=== PATIENT | male | born 1945 | race Caucasian/White ===

== ENCOUNTER 2019-07-17 09:51 | Inpatient (IN) | payer MEDICARE, OTHER ==
[~2019-07-17] VITALS: Ht 172.7 cm; Wt 85.9 kg
--- NOTE | 2019-07-17 10:15 | NUR ---
PTS HR NOTED TO DROP DOWN TO 40'S WITH OCC PVCS. AND RETURNS TO 80S. EKG REQUESTED AND COMPLETED BY GALINDO BELTRAN
[2019-07-17] MEDS ORDERED: normal saline 1000ML IV soln IVB ONE ×3 (10:35→14:20)
[2019-07-17] MEDS ORDERED: ondansetron/PF 4mg/2ml inj IV ONE ×2 (10:35→14:20)
[2019-07-17 10:41] LABS: BASOPHILS % (AUTO) 0.2 % (0-1); EOSINOPHILS % (AUTO) 0.3 % (0-6); HEMATOCRIT 36.2 % (42.0-52.0); HEMOGLOBIN 11.9 g/dl (14.0-17.9); LYMPHOCYTES # (AUTO) 0.7 X10'3 (1.1-4.8); LYMPHOCYTES % (AUTO) 5.6 % (21-51); MEAN CORPUSCULAR HEMOGLOBIN 27.2 PG (27.0-31.0); MEAN CORPUSCULAR HGB CONC 32.9 g/dL (33.0-36.5); MEAN CORPUSCULAR VOLUME 82.7 FL (78-98); MEAN PLATELET VOLUME 7.9 FL (7.4-10.4); MONOCYTES # (AUTO) 0.8 X10'3 (0-0.9); MONOCYTES % (AUTO) 6.5 % (2-12); NEUTROPHILS # (AUTO) 11.3 X10'3 (1.8-7.7); NEUTROPHILS % (AUTO) 87.4 % (42-75); PLATELET COUNT 342 X10'3 (140-440); RED BLOOD COUNT 4.38 X10'6 (4.70-6.10); RED CELL DISTRIBUTION WIDTH 13.9 % (11.5-14.5)
--- NOTE | 2019-07-17 10:46 | NUR ---
PT HAD A BAG OF EMISIS FROM EMS. IT WAS NOTED TO BE RED AND CHUNKY. PT STATES HE HAD RED JELLO AND PEACHES LATE LAST NOC.
[2019-07-17 10:49] LABS: ALANINE AMINOTRANSFERASE 11 U/L (12-78); ALBUMIN 3.8 G/DL (3.4-5.0); ALBUMIN/GLOBULIN RATIO 1.1 (1.1-1.5); ALKALINE PHOSPHATASE 69 IU/L (46-116); ANION GAP 12 (8-16); ASPARTATE AMINO TRANSFERASE 15 U/L (10-37); BILIRUBIN,TOTAL 0.7 MG/DL (0.1-1.0); BLOOD UREA NITROGEN 16 MG/DL (7-18); CALCIUM 9.3 MG/DL (8.5-10.1); CHLORIDE 103 MMOL/L (99-107); CREATININE 1.23 MG/DL (0.60-1.10); GLUCOSE 154 MG/DL (70-104); POTASSIUM 4.2 MMOL/L (3.5-5.1); SODIUM 140 MMOL/L (135-145); TOTAL CARBON DIOXIDE 24.9 MMOL/L (24-32); TOTAL PROTEIN 7.2 G/DL (6.4-8.2); eGFR 58 ML/MIN
[2019-07-17 10:56] LABS: LIPASE 122 U/L (73-393)
--- NOTE | 2019-07-17 11:58 | NUR ---
pt states he is not able to void at this time. 2nd L ns started will recheck
--- NOTE | 2019-07-17 12:10 | NUR ---
PT STATES THE PAIN AND "SICKNESS" IS BACK. NOTIFIED DR BRENTON TABARES FOR RYAN
[2019-07-17] MEDS ORDERED: metoclopramide 5 mg/ml inj IV ONE (12:15)
--- NOTE | 2019-07-17 12:23 | NUR ---
REGLAN GIVEN PER ORDER. INFORMED PT AND DR FARRIS IS WAITING ON URINE SAMPLE.
--- NOTE | 2019-07-17 12:47 | NUR ---
Lunch relief for primary nurse. Pt reminded we need a urine specimen. Pt reports significant amount of abd discomfort and nausea. Pt's has stable vital signs.
--- NOTE | 2019-07-17 13:20 | NUR ---
Pt's urine obtained via straight cath because he reports he is unable to attempt to void and provide a specimen at this time. Pt tolerated well. Pt continues to have discomfort and moaning due to pain and nausea.
[2019-07-17 13:46] LABS: CLARITY,URINE SLIGHTLY CLOUDY (Clear); COLOR,URINE YELLOW (Yellow); GLUCOSE, URINE NEGATIVE (Neg); KETONES,URINE 15 mg/dl (Neg); LEUKOCYTE ESTERASE ,URINE NEGATIVE (Neg); NITRITES, URINE NEGATIVE (Neg); OCCULT BLOOD,URINE NEGATIVE (Neg); PROTEIN,URINE NEGATIVE (Neg); UA COLLECTION TYPE STRAIGHT CATH
[2019-07-17 13:56] LABS: MUCUS STRANDS FEW /LPF (Neg)
[2019-07-17 13:57] LABS: HYALINE CASTS 0-3 /LPF (NEGATIVE); SQUAMOUS EPITHELIAL CELL,UR FEW /LPF (FEW)
[2019-07-17 14:02] LABS: BACTERIA,URINE FEW /HPF (Neg); RBC,URINE 0-2 /HPF (0-2); URIC ACID CRYSTALS 4+ /HPF (NEGATIVE); WBC,URINE 0-4 /HPF (0-4)
[2019-07-17] MEDS ORDERED: potassium Cl 20 mEq SR tablet PO PRN ×2 (14:30)
[2019-07-17] MEDS ORDERED: ondansetron/PF 4mg/2ml inj IV PRN (14:30)
[2019-07-17] MEDS ORDERED: mag hydrox/Alum hydrox/simeth 30ml oral suspension PO PRN (14:30)
[2019-07-17] MEDS ORDERED: diphenhydrAMINE 50 mg/ml inj IV PRN (14:30)
[2019-07-17] MEDS ORDERED: magnesium hydroxide 30ml (MOM) UD suspension PO PRN (14:30)
[2019-07-17] MEDS ORDERED: acetaminophen 650mg rectal suppository RC PRN (14:30)
[2019-07-17] MEDS ORDERED: acetaminophen 325mg tablet PO PRN ×2 (14:30)
[2019-07-17] MEDS ORDERED: metoclopramide 5 mg/ml inj IV PRN (14:30)
[2019-07-17] MEDS ORDERED: HYDROcodone/acetaminophen 10/325mg tab PO PRN (14:30)
[2019-07-17] MEDS ORDERED: diphenhydrAMINE 25mg capsule PO PRN (14:30)
[2019-07-17] MEDS ORDERED: HYDROmorphone inj. 0.5 MG/0.5 ML DISP.SYRIN IV PRN (14:30)
[2019-07-17] MEDS ORDERED: magnesium 4gm in 100ml NS 100 ML IV PRN (14:30)
[2019-07-17] MEDS ORDERED: magnesium 2GM in 50ml NS 50 ML IV PRN (14:30)
[2019-07-17] MEDS ORDERED: potassium CL 10mEq/100ml bag 100 ML IV PRN ×2 (14:30)
[2019-07-17] MEDS ORDERED: magnesium Cl slow-release 64mg tablet PO PRN (14:30)
[2019-07-17] MEDS ORDERED: HYDROcodone/acetaminophen 5mg/325mg tablet PO PRN (14:30)
[2019-07-17] MEDS: K and/or MAG REPLACEMENT MC SCH (14:30)
[2019-07-17] MEDS ORDERED: bisacodyl 10mg suppository rectal RC PRN (14:30)
[2019-07-17] MEDS: ringers solution, lacted 1,000 ML IV SCH (14:46)
--- NOTE | 2019-07-17 15:00 | NUR ---
DR LEVINE AND BRENTON AT FOR JOINT ASSESSMENT
--- NOTE | 2019-07-17 15:11 | NUR ---
[facility] (CELL) [phone] (HOME) [phone]
[2019-07-17 15:12] LABS: PHOSPHORUS 1.9 MG/DL (2.3-4.5)
[2019-07-17] MEDS ORDERED: NO HOME MEDS (15:16)
--- NOTE | 2019-07-17 15:22 | NUR ---
medical records release faxed to [facility]
[2019-07-17] MEDS: piperacillin/tazo 3.375gm/50ml 50 ML IV SCH ×2 (15:41→16:00)
--- NOTE | 2019-07-17 15:46 | NUR ---
STARTED ZOSYN, CHECKED COMPATABILITY WITH LACTATED RINGERS WITH [facility] PHARMACIST WHO ADVISED THAT THEY ARE COMPATIBLE
[2019-07-17 16:01] LABS: PARTIAL THROMBOPLASTIN TIME 28 SECONDS (22-32)
--- NOTE | 2019-07-17 16:31 | NUR ---
Patient in room ED 4. I have received report from REBEKAH Luna and had the opportunity to ask questions and assume patient care.
--- NOTE | 2019-07-17 16:45 | NUR ---
Patient in room [facility]. I have received report from Kourtney WELCH and had the opportunity to ask questions and assume patient care.
[2019-07-17 16:55] VITALS: BP 115/69
--- NOTE | 2019-07-17 16:59 | NUR ---
1600 zosyn was not administered because too close to previous dosing. Patient will continue with the normal dosing schedule at 0000 07/18. Pharmacy notified and advised action.
[2019-07-17] MEDS: proCHLORperazine 10 MG/2 ml inj IV PRN (17:47)
[2019-07-17 18:00] VITALS: BP 125/74
--- NOTE | 2019-07-17 18:20 | NUR ---
Problems reprioritized. Patient report given, questions answered & plan of care reviewed with Niurka Gayle RN.
--- NOTE | 2019-07-17 18:33 | NUR ---
Patient in room [facility]. I have received report from REBEKAH Abel and had the opportunity to ask questions and assume patient care. Addendum: 07/17/19 at 1833 by Clemencia Russell RN Amended: Links added.
[2019-07-17] MEDS: HYDROmorphone 1 mg/ml syringe IV PRN (20:17)
[2019-07-17] MEDS: diatr meglu/diatrizoate 30ml oral sol.-(3 dose) bottle PO SCH (20:18)
[2019-07-17] MEDS ORDERED: temazepam 15mg capsule PO PRN (21:00)
[2019-07-18] VITALS: BP 108/65
[2019-07-18] MEDS: piperacillin/tazo 3.375gm/50ml 50 ML IV SCH ×3 (00:24→15:54)
[2019-07-18] MEDS: ringers solution, lacted 1,000 ML IV SCH ×4 (00:24→20:54)
[2019-07-18] MEDS: proCHLORperazine 10 MG/2 ml inj IV PRN (00:30)
[2019-07-18] MEDS: HYDROmorphone 1 mg/ml syringe IV PRN (00:33)
[2019-07-18 05:16] LABS: BASOPHILS % (AUTO) 0.1 % (0-1); EOSINOPHILS % (AUTO) 0.2 % (0-6); HEMATOCRIT 29.5 % (42.0-52.0); HEMOGLOBIN 9.8 g/dl (14.0-17.9); LYMPHOCYTES # (AUTO) 0.6 X10'3 (1.1-4.8); LYMPHOCYTES % (AUTO) 8.7 % (21-51); MEAN CORPUSCULAR HEMOGLOBIN 27.6 PG (27.0-31.0); MEAN CORPUSCULAR HGB CONC 33.1 g/dL (33.0-36.5); MEAN CORPUSCULAR VOLUME 83.3 FL (78-98); MEAN PLATELET VOLUME 8.5 FL (7.4-10.4); MONOCYTES # (AUTO) 1.1 X10'3 (0-0.9); MONOCYTES % (AUTO) 17.2 % (2-12); NEUTROPHILS # (AUTO) 4.8 X10'3 (1.8-7.7); NEUTROPHILS % (AUTO) 73.8 % (42-75); PLATELET COUNT 256 X10'3 (140-440); RED BLOOD COUNT 3.55 X10'6 (4.70-6.10); RED CELL DISTRIBUTION WIDTH 13.8 % (11.5-14.5); WHITE BLOOD COUNT 6.5 X10'3 (4.5-11.0)
[2019-07-18 05:38] LABS: ALANINE AMINOTRANSFERASE 9 U/L (12-78); ALBUMIN 2.7 G/DL (3.4-5.0); ALBUMIN/GLOBULIN RATIO 0.9 (1.1-1.5); ALKALINE PHOSPHATASE 55 IU/L (46-116); ANION GAP 9 (8-16); ASPARTATE AMINO TRANSFERASE 18 U/L (10-37); BILIRUBIN,TOTAL 0.8 MG/DL (0.1-1.0); BLOOD UREA NITROGEN 21 MG/DL (7-18); BUN/CREATININE RATIO 12.7 (5.4-32.0); CALCIUM 8.2 MG/DL (8.5-10.1); CHLORIDE 108 MMOL/L (99-107); CREATININE 1.66 MG/DL (0.60-1.10); GLUCOSE 133 MG/DL (70-104); PHOSPHORUS 3.1 MG/DL (2.3-4.5); POTASSIUM 3.5 MMOL/L (3.5-5.1); SODIUM 142 MMOL/L (135-145); TOTAL CARBON DIOXIDE 24.8 MMOL/L (24-32); TOTAL PROTEIN 5.7 G/DL (6.4-8.2); eGFR 41 ML/MIN
--- NOTE | 2019-07-18 06:45 | NUR ---
Problems reprioritized. Patient report given, questions answered & plan of care reviewed with REBEKAH Coles. Addendum: 07/18/19 at 0645 by Clemencia Russell RN Amended: Links added.
[2019-07-18 06:55] LABS: ANISOCYTOSIS 1+; MICROCYTOSIS 1+; PLATELET ESTIMATE NORMAL; POIKILOCYTOSIS FEW; TOTAL CELLS COUNTED 100
[2019-07-18 08:00] VITALS: BP 111/65
[2019-07-18] MEDS: K and/or MAG REPLACEMENT MC SCH (08:00)
[2019-07-18] MEDS: diatr meglu/diatrizoate 30ml oral sol.-(3 dose) bottle PO SCH ×2 (09:19→10:50)
[2019-07-18] MEDS: enoxaparin 40mg/0.4ml syringe SUBCUT SCH (09:20)
[2019-07-18] MEDS ORDERED: iohexol 300mg/ml 100ml inj. ONE (10:56)
[2019-07-18 18:00] VITALS: BP 127/68
--- NOTE | 2019-07-18 18:35 | NUR ---
Patient in room [facility]. I have received report from REBEKAH Villafana and had the opportunity to ask questions and assume patient care. Addendum: 07/18/19 at 1835 by Clemencia Russell RN Amended: Links added.
--- NOTE | 2019-07-18 18:39 | NUR ---
Problems reprioritized. Patient report given, questions answered & plan of care reviewed with Niurka Gayle RN.
[2019-07-18] MEDS: lactobacillus rhamnosus 10,000 MMU CELLS/CAPSULE PO SCH (20:12)
[2019-07-19] MEDS: piperacillin/tazo 3.375gm/50ml 50 ML IV SCH ×2 (00:31→10:10)
[2019-07-19 00:51] VITALS: BP 120/71
[2019-07-19] MEDS: ringers solution, lacted 1,000 ML IV SCH (04:50)
[2019-07-19 05:27] LABS: BASOPHILS % (AUTO) 0.5 % (0-1); EOSINOPHILS # (AUTO) 0.1 X10'3 (0-0.9); EOSINOPHILS % (AUTO) 2.5 % (0-6); HEMATOCRIT 24.3 % (42.0-52.0); HEMOGLOBIN 8.2 g/dl (14.0-17.9); LYMPHOCYTES # (AUTO) 0.8 X10'3 (1.1-4.8); LYMPHOCYTES % (AUTO) 14.7 % (21-51); MEAN CORPUSCULAR HEMOGLOBIN 27.8 PG (27.0-31.0); MEAN CORPUSCULAR HGB CONC 33.7 g/dL (33.0-36.5); MEAN CORPUSCULAR VOLUME 82.4 FL (78-98); MEAN PLATELET VOLUME 8.2 FL (7.4-10.4); MONOCYTES # (AUTO) 0.7 X10'3 (0-0.9); MONOCYTES % (AUTO) 12.6 % (2-12); NEUTROPHILS # (AUTO) 3.9 X10'3 (1.8-7.7); NEUTROPHILS % (AUTO) 69.7 % (42-75); PLATELET COUNT 197 X10'3 (140-440); RED BLOOD COUNT 2.95 X10'6 (4.70-6.10); RED CELL DISTRIBUTION WIDTH 13.5 % (11.5-14.5); WHITE BLOOD COUNT 5.6 X10'3 (4.5-11.0)
[2019-07-19 05:34] LABS: ALANINE AMINOTRANSFERASE 9 U/L (12-78); ALBUMIN 2.5 G/DL (3.4-5.0); ALKALINE PHOSPHATASE 45 IU/L (46-116); ANION GAP 7 (8-16); ASPARTATE AMINO TRANSFERASE 15 U/L (10-37); BILIRUBIN,TOTAL 0.4 MG/DL (0.1-1.0); BLOOD UREA NITROGEN 13 MG/DL (7-18); BUN/CREATININE RATIO 9.1 (5.4-32.0); CALCIUM 7.9 MG/DL (8.5-10.1); CHLORIDE 109 MMOL/L (99-107); CREATININE 1.43 MG/DL (0.60-1.10); GLUCOSE 98 MG/DL (70-104); PHOSPHORUS 1.9 MG/DL (2.3-4.5); POTASSIUM 3.4 MMOL/L (3.5-5.1); SODIUM 144 MMOL/L (135-145); TOTAL PROTEIN 4.9 G/DL (6.4-8.2); eGFR 48 ML/MIN
--- NOTE | 2019-07-19 06:34 | NUR ---
Problems reprioritized. Patient report given, questions answered & plan of care reviewed with REBEKAH Chavez.
[2019-07-19 07:00] VITALS: BP 108/53
[2019-07-19] MEDS: K and/or MAG REPLACEMENT MC SCH (08:00)
[2019-07-19] MEDS: lactobacillus rhamnosus 10,000 MMU CELLS/CAPSULE PO SCH (10:09)
[2019-07-19] MEDS: enoxaparin 40mg/0.4ml syringe SUBCUT SCH (10:14)
[2019-07-19] MEDS ORDERED: Neutra Phos packet PO SCH (10:40)
[2019-07-19 11:00] VITALS: BP 140/80
--- NOTE | 2019-07-19 12:22 | NUR ---
DISCHARGE NOTE: PATIENT STABLE AND APPROPRIATE FOR DISCHARGE, IV TAKEN OUT, EDUCATION GIVEN, ALL BELONGINGS SENT WITH PATIENT, PATIENT TAKEN BY WHEEL CHAIR TO AN AWAITING CAR WHERE WILL TAKEN HOME
== END 2019-07-19 12:22 | disposition home or self-care (01) | DRG 389 ==
LOC: ER 09:52 → ED HOLD 14:30 → SUR 3N 16:40
PROVIDERS: ADMIT Family Medicine; ATTEND Family Medicine
PROC: BW211ZZ Computerized Tomography (CT Scan) of Abdomen and Pelvis using Low Osmolar Contrast (ICD-10-PCS; principal; 2019-07-18)
DX: K56.7 Ileus, unspecified (principal); N17.9 Acute kidney failure, unspecified; K40.90 Unilateral inguinal hernia, without obstruction or gangrene, not specified as recurrent; D64.9 Anemia, unspecified; D72.829 Elevated white blood cell count, unspecified; E83.39 Other disorders of phosphorus metabolism; E87.6 Hypokalemia; K42.9 Umbilical hernia without obstruction or gangrene; K43.9 Ventral hernia without obstruction or gangrene; K57.90 Diverticulosis of intestine, part unspecified, without perforation or abscess without bleeding; N18.9 Chronic kidney disease, unspecified; Z87.891 Personal history of nicotine dependence; Z90.49 Acquired absence of other specified parts of digestive tract
CPT/HCPCS: 36415; 71045; 74176; 74177; 80053; 81001; 83605; 83690; 83735; 84100; 84484; 85025; 85610; 85730; 87040; 87081; 93005; 96361; 96374; 96375; 99285; G0378; J0780; J1170; J1650; J2405; J2543; J2765; J7120; Q9963; Q9967

== ENCOUNTER 2019-12-10 07:38 | Inpatient (IN) | payer OTHER ==
[~2019-12-10] VITALS: Ht 172.7 cm; Wt 75.6 kg
[2019-12-10] VITALS (22 sets, daily range): BP systolic 65–145; BP diastolic 57–99
[~2019-12-10 07:38] MED LIST: SENN1TAB61 PO; ceFOXitin sod/dextrose 2g/50ml 50 ML IV ONE; famotidine 20mg tablet PO ONE; ringers solution, lacted 1,000 ML IV SCH
[2019-12-10 09:25] LABS: BASOPHILS % (AUTO) 0.6 % (0-1); EOSINOPHILS # (AUTO) 0.1 X10'3 (0-0.9); EOSINOPHILS % (AUTO) 1.6 % (0-6); LYMPHOCYTES # (AUTO) 0.7 X10'3 (1.1-4.8); LYMPHOCYTES % (AUTO) 10.7 % (21-51); MEAN CORPUSCULAR HEMOGLOBIN 21.1 PG (27.0-31.0); MEAN CORPUSCULAR VOLUME 70.3 FL (78-98); MEAN PLATELET VOLUME 7.7 FL (7.4-10.4); MONOCYTES # (AUTO) 0.5 X10'3 (0-0.9); MONOCYTES % (AUTO) 7.7 % (2-12); NEUTROPHILS % (AUTO) 79.4 % (42-75); PRE OP HEMATOCRIT 27.6 % (42.0-52.0); PRE OP PLATELET COUNT 355 X10'3 (140-440); RED BLOOD COUNT 3.92 X10'6 (4.70-6.10); RED CELL DISTRIBUTION WIDTH 19.2 % (11.5-14.5)
[2019-12-10 09:28] LABS: PRE OP HEMOGLOBIN 8.3 g/dL (14.0-17.9)
[2019-12-10 09:35] LABS: PRE OP INR 1.1 INR; PRE OP PROTIME 10.9 SECONDS (9.0-12.0)
[2019-12-10 09:37] LABS: ALBUMIN 3.2 G/DL (3.4-5.0); ALKALINE PHOSPHATASE 74 IU/L (46-116); BLOOD UREA NITROGEN 16 MG/DL (7-18); BUN/CREATININE RATIO 12.1 (5.4-32.0); CALCIUM 8.4 MG/DL (8.5-10.1); CHLORIDE 107 MMOL/L (99-107); CREATININE 1.32 MG/DL (0.60-1.10); PRE OP ALT 6 U/L (30-65); PRE OP ANION GAP 9 (8-16); PRE OP AST 17 U/L (10-37); PRE OP BILIRUB, TOTAL 0.6 MG/DL (0.0-1.0); PRE OP GLUCOSE 101 MG/DL (70-104); PRE OP POTASSIUM 3.9 MMOL/L (3.4-5.1); PRE OP SODIUM 143 MMOL/L (135-145); TOTAL CARBON DIOXIDE 26.7 MMOL/L (24-32); TOTAL PROTEIN 6.4 G/DL (6.4-8.2); eGFR 53 ML/MIN
[2019-12-10 09:57] LABS: PLATELET ESTIMATE NORMAL
[2019-12-10 09:58] LABS: ANISOCYTOSIS 2+; BURR CELLS FEW; ELLIPTOCYTES FEW; MICROCYTOSIS 1+; SCHISTOCYTES FEW
[2019-12-10] MEDS ORDERED: sevoflurane 250ml liquid IH ONE (11:19)
[2019-12-10] MEDS ORDERED: ondansetron/PF 4mg/2ml inj ONE (11:19)
[2019-12-10] MEDS ORDERED: fentaNYL/PF 50MCG/1 ML 2ML syringe ONE ×2 (11:27→11:52)
[2019-12-10] MEDS ORDERED: naloxone 0.4 mg/ml inj IV PRN (12:55)
[2019-12-10] MEDS ORDERED: ondansetron/PF 4mg/2ml inj IV PRN ×2 (12:55→13:15)
[2019-12-10] MEDS ORDERED: CADD PCA waste documentation MC PRN (12:55)
--- NOTE | 2019-12-10 13:10 | NUR ---
Received from OR via BED, accompanied by Anesthesiologist DR MARAVILLA-- and report given by Anesthesiolgist. PATIENT A&OX4, DENIES PAIN, V/S WNL, NEUROVASCULAR CHECKS INTACT, 20G PIV LUE, SCD ON, F/C DRAINING CLEAR YELLOW URINE. ISLAND DRESSING TO ABDOMEN CDI. HGB 9.9 HCT 29 FROM ISTAT
[2019-12-10] MEDS ORDERED: ringers solution, lacted 1,000 ML IV SCH (13:14)
[2019-12-10] MEDS ORDERED: morphine 2 MG/ML inj. syringe IV PRN (13:15)
[2019-12-10] MEDS ORDERED: HYDROmorphone inj. 0.5 MG/0.5 ML DISP.SYRIN IV PRN (13:15)
[2019-12-10] MEDS ORDERED: rocuronium 10mg/ml inj IV ONE (13:35)
[2019-12-10] MEDS ORDERED: LIDOcaine 2% (20mg/ml) 5ml vial ONE (13:35)
[2019-12-10] MEDS ORDERED: neostigmine methylsulfate 1 MG/ML 10ml vial ONE (13:35)
[2019-12-10] MEDS ORDERED: propofol inj 20 ML IV ONE (13:35)
[2019-12-10] MEDS ORDERED: phenylephrine 10mg/ml inj. ONE (13:35)
[2019-12-10] MEDS ORDERED: glycopyrrolate 0.2mg/ml inj ONE (13:35)
[2019-12-10] MEDS: HYDROmorphone/NS 1 mg/ml CADD 50 ML IV SCH ×6 (13:43→23:00)
--- NOTE | 2019-12-10 14:50 | NUR ---
PATIENT A&OX4, DENIES PAIN, V/S WNL, NEUROVASCULAR CHECKS INTACT, 18 G PIV LUE, SCD ON, F/C DRAINING CLEAR YELLOW URINE. ISLAND DRESSING TO ABDOMEN CDI. PATIENT TAKEN TO 3024A WITH ALL BELONGINGS AND HOOKED UP TO MONITORS IN ROOM AND REPORT GIVEN TO RN WHO HAS TAKEN OVER PATIENT CARE.
--- NOTE | 2019-12-10 15:11 | NUR ---
RECEIVED PATIENT TO ROOM 346A. PATIENT IS SLEEPING BUT IS EASILY AWAKENS TO VOICE AND IS ORIENTED X4. MIDLINE DRESSING TO ABD CDI. OWEN CATHETER DRAINING TO GRAVITY WITH CLEAR, YELLOW URINE. EDUCATED PATIENT USE OF CADD PUMP. ORIENTED PATIENT TO ROOM AND CALL LIGHT. CALL LIGHT IN WITHIN PATIENT'S REACH. BED IS LOW AND LOCKED. POST OP VITALS INITIATED, VSS.
[2019-12-10] MEDS: Potassium Cl inj 20 MEQ in ringers solution, lacted 1,000 ML IV SCH (18:02)
--- NOTE | 2019-12-10 18:31 | NUR ---
Problems reprioritized. Patient report given, questions answered & plan of care reviewed with LINH RN.
[2019-12-11] VITALS: BP 112/65
[2019-12-11] MEDS: HYDROmorphone/NS 1 mg/ml CADD 50 ML IV SCH ×12 (01:00→23:00)
[2019-12-11] MEDS: Potassium Cl inj 20 MEQ in ringers solution, lacted 1,000 ML IV SCH ×4 (02:38→21:37)
[2019-12-11 04:15] VITALS: BP 117/65
[2019-12-11 05:46] LABS: BASOPHILS % (AUTO) 0.2 % (0-1); EOSINOPHILS % (AUTO) 0 % (0-6); HEMATOCRIT 32.5 % (42.0-52.0); HEMOGLOBIN 10.5 g/dl (14.0-17.9); LYMPHOCYTES # (AUTO) 0.9 X10'3 (1.1-4.8); LYMPHOCYTES % (AUTO) 8.6 % (21-51); MEAN CORPUSCULAR HEMOGLOBIN 24.9 PG (27.0-31.0); MEAN CORPUSCULAR HGB CONC 32.4 g/dL (33.0-36.5); MEAN CORPUSCULAR VOLUME 76.9 FL (78-98); MONOCYTES # (AUTO) 0.9 X10'3 (0-0.9); MONOCYTES % (AUTO) 8.7 % (2-12); NEUTROPHILS # (AUTO) 8.8 X10'3 (1.8-7.7); NEUTROPHILS % (AUTO) 82.5 % (42-75); PLATELET COUNT 284 X10'3 (140-440); RED BLOOD COUNT 4.23 X10'6 (4.70-6.10); RED CELL DISTRIBUTION WIDTH 23.2 % (11.5-14.5); WHITE BLOOD COUNT 10.7 X10'3 (4.5-11.0)
[2019-12-11 06:02] LABS: ALBUMIN 2.5 G/DL (3.4-5.0); ANION GAP 7 (8-16); BLOOD UREA NITROGEN 14 MG/DL (7-18); BUN/CREATININE RATIO 10.6 (5.4-32.0); CALCIUM 7.7 MG/DL (8.5-10.1); CHLORIDE 110 MMOL/L (99-107); CREATININE 1.32 MG/DL (0.60-1.10); GLUCOSE 124 MG/DL (70-104); POTASSIUM 4.1 MMOL/L (3.5-5.1); SODIUM 143 MMOL/L (135-145); TOTAL CARBON DIOXIDE 26.4 MMOL/L (24-32); eGFR 53 ML/MIN
--- NOTE | 2019-12-11 06:32 | NUR ---
Patient in room [facility]. I have received report from REBEKAH MELTON and had the opportunity to ask questions and assume patient care.
[2019-12-11 07:04] LABS: BURR CELLS FEW; ELLIPTOCYTES FEW; MICROCYTOSIS 1+; PLATELET ESTIMATE NORMAL; SCHISTOCYTES FEW
[2019-12-11] MEDS: sennosides/docusate sodium tablet PO SCH (07:15)
[2019-12-11 08:00] VITALS: BP 122/67
[2019-12-11 11:02] VITALS: BP 117/65
[2019-12-11] MEDS: enoxaparin 40mg/0.4ml syringe SUBCUT SCH (14:06)
[2019-12-11 18:15] VITALS: BP 142/71
--- NOTE | 2019-12-11 18:57 | NUR ---
Patient in room [facility] 340. I have received report from REBEKAH Thakkar and had the opportunity to ask questions and assume patient care.
--- NOTE | 2019-12-11 19:01 | NUR ---
Problems reprioritized. Patient report given, questions answered & plan of care reviewed with ELIZA, RN.
[2019-12-12 00:15] VITALS: BP 152/82
[2019-12-12] MEDS: HYDROmorphone/NS 1 mg/ml CADD 50 ML IV SCH ×12 (01:00→22:59)
[2019-12-12 06:16] LABS: BASOPHILS % (AUTO) 0.5 % (0-1); EOSINOPHILS # (AUTO) 0.1 X10'3 (0-0.9); EOSINOPHILS % (AUTO) 0.7 % (0-6); HEMATOCRIT 29.9 % (42.0-52.0); HEMOGLOBIN 9.7 g/dl (14.0-17.9); LYMPHOCYTES # (AUTO) 0.8 X10'3 (1.1-4.8); LYMPHOCYTES % (AUTO) 8.2 % (21-51); MEAN CORPUSCULAR HEMOGLOBIN 24.9 PG (27.0-31.0); MEAN CORPUSCULAR HGB CONC 32.4 g/dL (33.0-36.5); MEAN PLATELET VOLUME 7.8 FL (7.4-10.4); NEUTROPHILS # (AUTO) 7.3 X10'3 (1.8-7.7); NEUTROPHILS % (AUTO) 79.6 % (42-75); PLATELET COUNT 277 X10'3 (140-440); RED BLOOD COUNT 3.89 X10'6 (4.70-6.10); RED CELL DISTRIBUTION WIDTH 23.9 % (11.5-14.5); WHITE BLOOD COUNT 9.2 X10'3 (4.5-11.0)
--- NOTE | 2019-12-12 06:27 | NUR ---
Problems reprioritized. Patient report given, questions answered & plan of care reviewed with REBEKAH Abrams.
[2019-12-12 06:28] LABS: ALBUMIN 2.4 G/DL (3.4-5.0); ANION GAP 5 (8-16); BLOOD UREA NITROGEN 11 MG/DL (7-18); BUN/CREATININE RATIO 9.6 (5.4-32.0); CALCIUM 8.1 MG/DL (8.5-10.1); CHLORIDE 107 MMOL/L (99-107); CREATININE 1.14 MG/DL (0.60-1.10); GLUCOSE 103 MG/DL (70-104); POTASSIUM 3.8 MMOL/L (3.5-5.1); SODIUM 141 MMOL/L (135-145); TOTAL CARBON DIOXIDE 28.7 MMOL/L (24-32); eGFR 63 ML/MIN
[2019-12-12 07:30] VITALS: BP 131/81
[2019-12-12] MEDS ORDERED: enoxaparin 40mg/0.4ml syringe SUBCUT SCH (08:00)
[2019-12-12] MEDS: enoxaparin 40mg/0.4ml syringe SUBCUT SCH (09:30)
[2019-12-12] MEDS: sennosides/docusate sodium tablet PO SCH (09:30)
[2019-12-12] MEDS: Potassium Cl inj 20 MEQ in ringers solution, lacted 1,000 ML IV SCH ×2 (11:24→22:11)
[2019-12-12 12:19] VITALS: BP 134/75
[2019-12-12 18:15] VITALS: BP 154/84
--- NOTE | 2019-12-12 18:35 | NUR ---
Gave report to Aurea WELCH.
[2019-12-13 00:15] VITALS: BP 148/84
[2019-12-13] MEDS: HYDROmorphone/NS 1 mg/ml CADD 50 ML IV SCH ×12 (01:00→23:00)
[2019-12-13 06:03] LABS: BASOPHILS % (AUTO) 0.4 % (0-1); EOSINOPHILS # (AUTO) 0.2 X10'3 (0-0.9); EOSINOPHILS % (AUTO) 2.8 % (0-6); HEMATOCRIT 29.1 % (42.0-52.0); HEMOGLOBIN 9.3 g/dl (14.0-17.9); LYMPHOCYTES # (AUTO) 0.8 X10'3 (1.1-4.8); LYMPHOCYTES % (AUTO) 12.1 % (21-51); MEAN CORPUSCULAR HEMOGLOBIN 24.5 PG (27.0-31.0); MEAN CORPUSCULAR HGB CONC 32.1 g/dL (33.0-36.5); MEAN CORPUSCULAR VOLUME 76.3 FL (78-98); MEAN PLATELET VOLUME 7.6 FL (7.4-10.4); MONOCYTES # (AUTO) 0.7 X10'3 (0-0.9); MONOCYTES % (AUTO) 11.4 % (2-12); NEUTROPHILS # (AUTO) 4.8 X10'3 (1.8-7.7); NEUTROPHILS % (AUTO) 73.3 % (42-75); PLATELET COUNT 266 X10'3 (140-440); RED BLOOD COUNT 3.81 X10'6 (4.70-6.10); RED CELL DISTRIBUTION WIDTH 24.4 % (11.5-14.5); WHITE BLOOD COUNT 6.6 X10'3 (4.5-11.0)
[2019-12-13 06:25] LABS: ALBUMIN 2.3 G/DL (3.4-5.0); ANION GAP 4 (8-16); BLOOD UREA NITROGEN 8 MG/DL (7-18); BUN/CREATININE RATIO 7.6 (5.4-32.0); CALCIUM 8.5 MG/DL (8.5-10.1); CHLORIDE 106 MMOL/L (99-107); CREATININE 1.05 MG/DL (0.60-1.10); GLUCOSE 100 MG/DL (70-104); POTASSIUM 3.7 MMOL/L (3.5-5.1); SODIUM 139 MMOL/L (135-145); TOTAL CARBON DIOXIDE 29.3 MMOL/L (24-32); eGFR 69 ML/MIN
--- NOTE | 2019-12-13 06:30 | NUR ---
Patient in room [facility]. I have received report from Aurea and had the opportunity to ask questions and assume patient care.
--- NOTE | 2019-12-13 06:31 | NUR ---
Problems reprioritized. Patient report given, questions answered & plan of care reviewed with REBEKAH Sparks.
[2019-12-13 06:51] LABS: ANISOCYTOSIS 3+; HYPOCHROMASIA 1+; MICROCYTOSIS 1+; PLATELET ESTIMATE NORMAL; POIKILOCYTOSIS 1+
[2019-12-13 07:00] VITALS: BP 162/94
[2019-12-13] MEDS: enoxaparin 40mg/0.4ml syringe SUBCUT SCH (07:46)
[2019-12-13] MEDS: sennosides/docusate sodium tablet PO SCH (07:46)
[2019-12-13 11:00] VITALS: BP 155/86
[2019-12-13] MEDS: Potassium Cl inj 20 MEQ in ringers solution, lacted 1,000 ML IV SCH ×2 (11:46→23:34)
--- NOTE | 2019-12-13 18:05 | NUR ---
Problems reprioritized. Patient report given, questions answered & plan of care reviewed with Aurea.
[2019-12-13 18:15] VITALS: BP 155/92
--- NOTE | 2019-12-13 18:38 | NUR ---
Patient in room [facility]. I have received report from REBEKAH Sparks and had the opportunity to ask questions and assume patient care.
[2019-12-14 00:16] VITALS: BP 154/82
[2019-12-14] MEDS: HYDROmorphone/NS 1 mg/ml CADD 50 ML IV SCH ×12 (01:00→23:00)
[2019-12-14 06:00] LABS: BASOPHILS % (AUTO) 0.4 % (0-1); EOSINOPHILS # (AUTO) 0.3 X10'3 (0-0.9); EOSINOPHILS % (AUTO) 5.3 % (0-6); HEMATOCRIT 29.3 % (42.0-52.0); HEMOGLOBIN 9.3 g/dl (14.0-17.9); LYMPHOCYTES # (AUTO) 0.7 X10'3 (1.1-4.8); LYMPHOCYTES % (AUTO) 12.6 % (21-51); MEAN CORPUSCULAR HEMOGLOBIN 24.3 PG (27.0-31.0); MEAN CORPUSCULAR HGB CONC 31.9 g/dL (33.0-36.5); MEAN CORPUSCULAR VOLUME 76.4 FL (78-98); MEAN PLATELET VOLUME 7.6 FL (7.4-10.4); MONOCYTES # (AUTO) 0.8 X10'3 (0-0.9); NEUTROPHILS % (AUTO) 68.7 % (42-75); PLATELET COUNT 286 X10'3 (140-440); RED BLOOD COUNT 3.84 X10'6 (4.70-6.10); RED CELL DISTRIBUTION WIDTH 24.8 % (11.5-14.5); WHITE BLOOD COUNT 5.8 X10'3 (4.5-11.0)
--- NOTE | 2019-12-14 06:00 | NUR ---
Patient in room [facility]. I have received report from REBEKAH Villar and had the opportunity to ask questions and assume patient care.
[2019-12-14 06:16] LABS: ALBUMIN 2.3 G/DL (3.4-5.0); ANION GAP 2 (8-16); BLOOD UREA NITROGEN 8 MG/DL (7-18); BUN/CREATININE RATIO 7.8 (5.4-32.0); CALCIUM 8.5 MG/DL (8.5-10.1); CHLORIDE 106 MMOL/L (99-107); CREATININE 1.03 MG/DL (0.60-1.10); GLUCOSE 95 MG/DL (70-104); POTASSIUM 3.8 MMOL/L (3.5-5.1); SODIUM 137 MMOL/L (135-145); eGFR 70 ML/MIN
--- NOTE | 2019-12-14 06:22 | NUR ---
Problems reprioritized. Patient report given, questions answered & plan of care reviewed with REBEKAH Haley.
[2019-12-14 06:59] LABS: ANISOCYTOSIS 3+; ELLIPTOCYTES FEW; HYPOCHROMASIA 1+; MICROCYTOSIS 1+; PLATELET ESTIMATE NORMAL; POLYCHROMASIA 1+
[2019-12-14 07:00] VITALS: BP 154/87
[2019-12-14 07:00] LABS: BURR CELLS FEW; SCHISTOCYTES FEW
[2019-12-14] MEDS: enoxaparin 40mg/0.4ml syringe SUBCUT SCH (08:46)
[2019-12-14] MEDS: sennosides/docusate sodium tablet PO SCH (08:47)
[2019-12-14 13:43] VITALS: BP 154/82
[2019-12-14] MEDS: Potassium Cl inj 20 MEQ in ringers solution, lacted 1,000 ML IV SCH (17:12)
[2019-12-14 18:30] VITALS: BP 152/97
--- NOTE | 2019-12-14 18:35 | NUR ---
Problems reprioritized. Patient report given, questions answered & plan of care reviewed with REBEKAH Geren.
[2019-12-14 20:00] VITALS: BP 152/97
[2019-12-15 00:12] VITALS: BP 158/80
[2019-12-15] MEDS ORDERED: acetaminophen 325mg tablet PO PRN (00:30)
[2019-12-15] MEDS: HYDROmorphone/NS 1 mg/ml CADD 50 ML IV SCH ×8 (01:00→15:00)
[2019-12-15 05:49] LABS: BASOPHILS % (AUTO) 0.4 % (0-1); EOSINOPHILS # (AUTO) 0.2 X10'3 (0-0.9); EOSINOPHILS % (AUTO) 3.5 % (0-6); HEMATOCRIT 32.3 % (42.0-52.0); HEMOGLOBIN 10.4 g/dl (14.0-17.9); LYMPHOCYTES # (AUTO) 0.7 X10'3 (1.1-4.8); LYMPHOCYTES % (AUTO) 10.8 % (21-51); MEAN CORPUSCULAR HEMOGLOBIN 24.3 PG (27.0-31.0); MEAN CORPUSCULAR VOLUME 75.9 FL (78-98); MEAN PLATELET VOLUME 7.6 FL (7.4-10.4); MONOCYTES # (AUTO) 0.6 X10'3 (0-0.9); MONOCYTES % (AUTO) 10.5 % (2-12); NEUTROPHILS # (AUTO) 4.5 X10'3 (1.8-7.7); NEUTROPHILS % (AUTO) 74.8 % (42-75); PLATELET COUNT 324 X10'3 (140-440); RED BLOOD COUNT 4.25 X10'6 (4.70-6.10)
[2019-12-15 06:04] LABS: ALBUMIN 2.6 G/DL (3.4-5.0); ANION GAP 9 (8-16); BLOOD UREA NITROGEN 9 MG/DL (7-18); BUN/CREATININE RATIO 8.7 (5.4-32.0); CALCIUM 8.8 MG/DL (8.5-10.1); CHLORIDE 104 MMOL/L (99-107); CREATININE 1.04 MG/DL (0.60-1.10); GLUCOSE 109 MG/DL (70-104); POTASSIUM 3.8 MMOL/L (3.5-5.1); SODIUM 140 MMOL/L (135-145); TOTAL CARBON DIOXIDE 27.3 MMOL/L (24-32); eGFR 70 ML/MIN
--- NOTE | 2019-12-15 06:33 | NUR ---
Problems reprioritized. Patient report given, questions answered & plan of care reviewed with KURT. Addendum: 12/15/19 at 0633 by Fercho Martinez RN Amended: Links added.
--- NOTE | 2019-12-15 06:55 | NUR ---
Patient in room [facility]. I have received report from Osmin WELCH and had the opportunity to ask questions and assume patient care.
[2019-12-15 07:39] VITALS: BP 157/68
[2019-12-15] MEDS: sennosides/docusate sodium tablet PO SCH (07:50)
[2019-12-15] MEDS: enoxaparin 40mg/0.4ml syringe SUBCUT SCH (07:50)
[2019-12-15 09:15] LABS: PLATELET ESTIMATE NORMAL; POIKILOCYTOSIS 1+
[2019-12-15 09:16] LABS: ANISOCYTOSIS 3+; ELLIPTOCYTES FEW; MICROCYTOSIS 1+; SCHISTOCYTES 1+
[2019-12-15 09:18] LABS: BURR CELLS 1+
[2019-12-15 11:00] VITALS: BP 138/76
[2019-12-15 11:40] VITALS: BP 125/83
--- NOTE | 2019-12-15 12:40 | NUR ---
Initial: Pt s/p R hemicolectomy for colon CA advanced to full liquid diet PO 25% avg meals fluctuating post-op. No flatus or BM yet post-op per MD receiving routine senna; prune juice added to lunch and dinner today. PO likely impacted by constipation post-op. May benefit from opioid antagonist if MD agreeable since receiving hydromorphone CADD. Will continue to monitor for diet advance and tolerance post-op. Rec: 1. advance diet as medically indicated to low-residue; encourage PO 2. prune juice BIDLD one time 12/14 given constipation 3. routine bowel care; consider opioid antagonist on hydromorphone CADD 4. monitor for ONS needs 5. wt per rx Addendum: 12/15/19 at [address] Amended: Links added.
[2019-12-15] MEDS: HYDROcodone/acetaminophen 5mg/325mg tablet PO PRN (18:13)
--- NOTE | 2019-12-15 18:28 | NUR ---
Patient in room [facility]. I have received report from REBEKAH Cobos and had the opportunity to ask questions and assume patient care. Addendum: 12/15/19 at 1829 by Kate Lombardo RN Amended: Links added.
--- NOTE | 2019-12-15 18:33 | NUR ---
Problems reprioritized. Patient report given, questions answered & plan of care reviewed with Nicki WELCH.
[2019-12-15 20:13] VITALS: BP 141/84
[2019-12-16 00:01] VITALS: BP 119/76
--- NOTE | 2019-12-16 06:07 | NUR ---
Problems reprioritized. Patient report given, questions answered & plan of care reviewed with REBEKAH Moe. Addendum: 12/16/19 at 0608 by Kate Lombardo RN Amended: Links added.
[2019-12-16] MEDS: sennosides/docusate sodium tablet PO SCH (07:13)
[2019-12-16] MEDS: enoxaparin 40mg/0.4ml syringe SUBCUT SCH (07:15)
[2019-12-16 08:00] VITALS: BP 137/87
[2019-12-16 11:50] VITALS: BP 122/78
[2019-12-16] MEDS: HYDROcodone/acetaminophen 5mg/325mg tablet PO PRN (12:46)
--- NOTE | 2019-12-16 13:23 | NUR ---
Patient stable and appropriate for discharge home. IV removed. All belongings taken from room. Discharge instructions given and reviewed with patient, all questions answered. Medication called into [facility] pharmacy by Dr. Espinosa's office.
== END 2019-12-16 13:20 | disposition home or self-care (01) | DRG 330 ==
LOC: PAS IN 07:38 → UNDOADMIN 07:38 → EDSTATUS 08:45 → PAS IN 12:52 → SUR 3N 14:50 → PAS IN 14:50 → SUR 3N 12-11 15:29
PROVIDERS: ADMIT Surgery; ATTEND Surgery
PROC: 0DBK0ZZ Excision of Ascending Colon, Open Approach (ICD-10-PCS; 2019-12-10)
PROC: 30233N1 Transfusion of Nonautologous Red Blood Cells into Peripheral Vein, Percutaneous Approach (ICD-10-PCS; 2019-12-10)
PROC: 0FB00ZZ Excision of Liver, Open Approach (ICD-10-PCS; principal; 2019-12-10 11:19)
DX: C18.2 Malignant neoplasm of ascending colon (principal); C78.7 Secondary malignant neoplasm of liver and intrahepatic bile duct; N18.3 Chronic kidney disease, stage 3 (moderate); M19.90 Unspecified osteoarthritis, unspecified site; E78.5 Hyperlipidemia, unspecified; F17.210 Nicotine dependence, cigarettes, uncomplicated; D64.9 Anemia, unspecified; K57.90 Diverticulosis of intestine, part unspecified, without perforation or abscess without bleeding; K59.00 Constipation, unspecified
CPT/HCPCS: 36415; 36430; 80048; 80053; 85025; 85610; 85730; 86885; 86900; 86901; 86920; 87081; 93005; A4618; A6258; A6449; A7000; C1758; G0378; J0694; J1170; J1650; J2001; J2370; J2405; J2704; J2710; J3010; J3480; J3490; J7030; J7120; P9016

== ENCOUNTER 2020-02-12 08:26 | Day surgery (SDC) | payer MEDICARE, OTHER ==
[2020-02-12] VITALS (15 sets, daily range): BP systolic 88–133; BP diastolic 49–76
[~2020-02-12] VITALS: Ht 172.7 cm; Wt 79.7 kg
[~2020-02-12 08:26] MED LIST changes: -ceFOXitin sod/dextrose 2g/50ml 50 ML IV ONE; -famotidine 20mg tablet PO ONE; -ringers solution, lacted 1,000 ML IV SCH
[2020-02-12] MEDS ORDERED: normal saline 1000ml 1,000 ML IV PRN (08:50)
[2020-02-12 09:49] LABS: BASOPHILS % (AUTO) 0.4 % (0-1); EOSINOPHILS # (AUTO) 0.1 X10'3 (0-0.9); EOSINOPHILS % (AUTO) 0.5 % (0-6); HEMATOCRIT 32.9 % (42.0-52.0); HEMOGLOBIN 10.5 g/dl (14.0-17.9); LYMPHOCYTES # (AUTO) 0.9 X10'3 (1.1-4.8); LYMPHOCYTES % (AUTO) 8.6 % (21-51); MEAN CORPUSCULAR HEMOGLOBIN 25.1 PG (27.0-31.0); MEAN CORPUSCULAR HGB CONC 31.9 g/dL (33.0-36.5); MEAN CORPUSCULAR VOLUME 78.6 FL (78-98); MEAN PLATELET VOLUME 7.9 FL (7.4-10.4); MONOCYTES # (AUTO) 0.3 X10'3 (0-0.9); MONOCYTES % (AUTO) 2.9 % (2-12); NEUTROPHILS # (AUTO) 9.5 X10'3 (1.8-7.7); NEUTROPHILS % (AUTO) 87.6 % (42-75); PLATELET COUNT 230 X10'3 (140-440); RED BLOOD COUNT 4.18 X10'6 (4.70-6.10); RED CELL DISTRIBUTION WIDTH 20.1 % (11.5-14.5); WHITE BLOOD COUNT 10.8 X10'3 (4.5-11.0)
[2020-02-12] MEDS ORDERED: LORA10TA65 PO (09:56)
[2020-02-12 10:01] LABS: ALBUMIN 3.2 G/DL (3.4-5.0); ANION GAP 9 (8-16); BLOOD UREA NITROGEN 20 MG/DL (7-18); BUN/CREATININE RATIO 17.2 (5.4-32.0); CALCIUM 8.6 MG/DL (8.5-10.1); CHLORIDE 107 MMOL/L (99-107); CREATININE 1.16 MG/DL (0.60-1.10); GLUCOSE 95 MG/DL (70-104); POTASSIUM 3.9 MMOL/L (3.5-5.1); SODIUM 143 MMOL/L (135-145); TOTAL CARBON DIOXIDE 26.8 MMOL/L (24-32); eGFR 61 ML/MIN
[2020-02-12 11:03] LABS: ANISOCYTOSIS 3+; MICROCYTOSIS 1+; PLATELET ESTIMATE NORMAL
[2020-02-12 11:04] LABS: ELLIPTOCYTES FEW
[2020-02-12] MEDS ORDERED: fentaNYL/PF 50MCG/1 ML 2ML syringe ONE (11:06)
[2020-02-12] MEDS ORDERED: midazolam 2 mg/2 ml injection ONE (11:06)
[2020-02-12] MEDS ORDERED: HYDROcodone/acetaminophen 5mg/325mg tablet PO PRN (11:50)
== END 2020-02-12 14:00 | disposition home or self-care (01) ==
LOC: SSTAY O 08:26
PROVIDERS: ATTEND Radiology Diagnostic Radiology
DX: K76.89 Other specified diseases of liver (principal); C18.0 Malignant neoplasm of cecum; C78.7 Secondary malignant neoplasm of liver and intrahepatic bile duct; Z79.899 Other long term (current) drug therapy
CPT/HCPCS: 36415; 47000; 71045; 77012; 80048; 85025; 85610; 99152; 99153; J2250; J3010; J7030